=== PATIENT | male | born 1960 | race Caucasian/White ===

== ENCOUNTER 2019-04-14 14:15 | Emergency (ER) | payer OTHER ==
[~2019-04-14] VITALS: Ht 170.2 cm; Wt 78.9 kg
[2019-04-14 14:18] VITALS: Ht 170.2 cm; Wt 78.9 kg
[2019-04-14] MEDS ORDERED: SOD CHLORIDE 0.9% 500 ML IV STA (15:15)
[2019-04-14] MEDS ORDERED: AMLO-147 PO (15:32)
[2019-04-14] MEDS ORDERED: LISI-471 PO (15:32)
[2019-04-14] MEDS ORDERED: MECL-77 PO (15:33)
[2019-04-14] MEDS ORDERED: ALPR0.5T PO (15:34)
[2019-04-14] MEDS ORDERED: TOPI100T11 PO (15:35)
[2019-04-14] MEDS ORDERED: MET25 PO (15:35)
[2019-04-14] MEDS ORDERED: FOLI-49 PO (15:36)
[2019-04-14] MEDS ORDERED: ZOLP10TA5 PO (15:36)
[2019-04-14] MEDS ORDERED: SERT-165 PO (15:36)
[2019-04-14] MEDS ORDERED: ACET1TAB40 PO (15:37)
[2019-04-14 17:51] VITALS: BP 137/85; PULSE 85; RESP 18
--- NOTE | 2019-04-15 00:52 | ERD ---
ER Documentation Chief Complaint Chief Complaint Dizziness X 1 wk worse today, Hx Depression, Anxiety, HTN HPI 58-year-old male presenting with complaints of years of dizziness, worse today. He describes his room spinning dizziness as well as lightheadedness, worse with change in position. Improves with rest. No associated chest pain or shortness of breath. No associated nausea, vomiting, vision disturbance, focal weakness or numbness. He did drive himself to the ER today. Currently he feels much better than he did earlier this morning. He has been taking meclizine for several years without improvement of his symptoms so he decided to stop taking this medication. In the past he has been evaluated by ENT. He did not go to his primary care doctor despite his worsening symptoms over the past 2 weeks, as he feels like he would get better care in the ER. ROS All systems reviewed and are negative except as per history of present illness. Medications Home Meds Reported Medications Acetaminophen with Codeine (Acetaminophen-Cod #3 Tablet) 1 Each Tablet, 1 TAB PO Q6H PRN for NEEDED, #7 TAB 04/14/19 Folic Acid* (Folic Acid*) 1 Mg Tablet, 1 MG PO DAILY, TAB 04/14/19 Sertraline Hcl* (Sertraline Hcl*) 100 Mg Tablet, 100 MG PO DAILY, #30 TAB 04/14/19 Zolpidem Tartrate* (Zolpidem Tartrate*) 10 Mg Tablet, 10 MG PO QHS PRN for INSOMNIA, #30 TAB 04/14/19 Topiramate* (Topiramate*) 100 Mg Tablet, 100 MG PO DAILY, TAB 04/14/19 Methotrexate* (Methotrexate*) 2.5 Mg Tab, 2.5 MG PO 3 TIMES A WEEK, TAB 04/14/19 Alprazolam* (Xanax*) 0.5 Mg Tab, 0.5 MG PO BID PRN for ANXIETY, TAB 04/14/19 Meclizine Hcl* (Meclizine Hcl*) 25 Mg Tablet, 25 MG PO DAILY PRN for DIZZINESS, TAB 04/14/19 Lisinopril* (Lisinopril*) 20 Mg Tablet, 20 MG PO DAILY, #30 TAB 04/14/19 Amlodipine Besylate* (Amlodipine Besylate*) 10 Mg Tablet, 10 MG PO DAILY, #30 TAB 04/14/19 Allergies Allergies: Coded Allergies: No Known Allergy (Unverified , 04/14/19) PMhx/Soc History of Surgery: No Anesthesia Reaction: No Hx Neurological Disorder: No Hx Respiratory Disorders: No Hx Cardiac Disorders: Yes Hx Psychiatric Problems: Yes (Bipolar) Hx Miscellaneous Medical Probl: No Hx Alcohol Use: Yes Hx Substance Use: No Hx Tobacco Use: Yes Smoking Status: Current every day smoker FmHx Family History: No diabetes Physical Exam Vitals Vital Signs Date Temp Pulse Resp B/P (MAP) Pulse Ox O2 O2 Flow FiO2 Time Delivery Rate 04/14/19 97.8 85 18 137/85 97 Room Air 17:51 (102) 04/14/19 97.8 88 18 131/83 97 Room Air 17:00 (99) 04/14/19 97.8 90 18 138/90 97 Room Air 15:10 (106) 04/14/19 97.8 105 18 142/88 97 14:18 (106) Physical Exam Const: No acute distress Head: Atraumatic Eyes: Normal Conjunctiva, PERRLA, EOMI, no nystagmus ENT: Normal External Ears, Nose and Mouth. Neck: Full range of motion. No meningismus. Resp: Clear to auscultation bilaterally Cardio: Regular rate and rhythm, no murmurs Abd: Soft, non tender, non distended. Normal bowel sounds Skin: No petechiae or rashes Back: No midline or flank tenderness Ext: No cyanosis, or edema Neur: Awake and alert, oriented x3, normal speech, no facial asymmetry. Cranial nerves intact. Strength and sensations intact in all 4 extremities. Cerebellar exam normal. Psych: Normal Mood and Affect Result Diagram: 04/14/19 1545 04/14/19 1544 Results 24 hrs Laboratory Tests Test 04/14/19 15:44 04/14/19 15:45 Sodium Level 139 mmol/L Potassium Level 4.1 mmol/L Chloride Level 106 mmol/L Carbon Dioxide Level 23 mmol/L Anion Gap 10 Blood Urea Nitrogen 15 mg/dl Creatinine 0.97 mg/dl Est Glomerular Filtrat Rate mL/min > 60 mL/min Glucose Level 85 mg/dl Calcium Level 9.6 mg/dl Troponin I < 0.012 ng/ml White Blood Count 9.5 10^3/ul Red Blood Count 4.64 10^6/ul Hemoglobin 13.9 g/dl Hematocrit 41.3 % Mean Corpuscular Volume 89.0 fl Mean Corpuscular Hemoglobin 30.0 pg Mean Corpuscular Hemoglobin Concent 33.7 g/dl Red Cell Distribution Width 13.2 % Platelet Count 165 10^3/UL Mean Platelet Volume 11.8 fl Immature Granulocytes % 0.200 % Neutrophils % 55.1 % Lymphocytes % 33.0 % Monocytes % 9.9 % Eosinophils % 1.1 % Basophils % 0.7 % Nucleated Red Blood Cells % 0.0 /100WBC Immature Granulocytes # 0.020 10^3/ul Neutrophils # 5.2 10^3/ul Lymphocytes # 3.1 10^3/ul Monocytes # 0.9 10^3/ul Eosinophils # 0.1 10^3/ul Basophils # 0.1 10^3/ul Nucleated Red Blood Cells # 0.0 10^3/ul Current Medications Medications Dose Sig/Keon Start Time Status Last (Trade) Ordered Route PRN Stop Time Admin Dose Reason Admin Sodium 500 ml @ Q1H STAT 04/14/19 DC 04/14/19 Chloride 500 mls/hr IV 15:15 15:59 04/14/19 16:14 Procedures/MDM EMERGENT LABS AND DIAGNOSTIC STUDIES: Lab Results above were reviewed and interpreted by me. CBC: no anemia or evidence of infection BMP: no e/o clinically significant electrolyte abnormality severe acidosis, alkalosis, renal failure, diabetic ketoacidosis Troponin within normal limits, not indicative of cardiac ischemia 12-lead EKG was interpreted by Carlos Yarbrough MD: Normal Sinus Rhythm with ventricular rate of 89 beats per minute Normal axis Normal intervals No acute ST or T wave changes suggestive of acute ischemia or STEMI. Radiology Results as interpreted by Radiology below were reviewed by Frank Yarbrough MD: Chest x-ray shows no acute abnormalities CT head shows no acute or significant abnormalities Initial Nursing notes reviewed. Previous Medical Records requested via the Electronic Health Record. EMERGENCY DEPARTMENT COURSE / MEDICAL DECISION MAKING: Patient presents with acute on chronic dizziness. Vitals were unremarkable. Given his age and risk factors, CT head was performed and not show any si gnificant abnormalities. At this time, I have a low suspicion for stroke, increased intracranial pressure, acute coronary syndrome, dissection, intracranial hemorrhage. After testing, I discussed the results with patient. Patient seemed reassured. Upon reevaluation, his symptoms had significantly improved. He was ambulating in the ER with a steady gait. I recommended follow-up with his primary care doctor and ENT. Return precautions given. Patient's blood pressure was elevated (>120/80) but appears stable without evidence of hypertensive emergency or urgency. The patient was counseled about the risks of hypertension and urged to pursue outpatient monitoring and therapy within a week with their primary care physician. Departure Diagnosis: Primary Impression: Dizziness Condition: Stable Patient Instructions: Inner Ear Problems: Causes of Dizziness (Vertigo), Dizziness (Vertigo) and Balance Problems: Ensuring Your Safety Referrals: [facility] (PCP) DIOGO YARBROUGH MD Apr 15, 2019 00:52
== END 2019-04-14 18:04 | disposition home or self-care (01) ==
LOC: E/R 14:15
DX: R42 Dizziness and giddiness (principal); I10 Essential (primary) hypertension; R40.2142 Coma scale, eyes open, spontaneous, at arrival to emergency department; R40.2362 Coma scale, best motor response, obeys commands, at arrival to emergency department; R40.2252 Coma scale, best verbal response, oriented, at arrival to emergency department; F17.210 Nicotine dependence, cigarettes, uncomplicated
CPT/HCPCS: 70450; 71045; 80048; 84484; 85025; J7040; 36415; 93005